=== PATIENT | female | born 1930 | race Caucasian/White ===

== ENCOUNTER 2017-11-21 15:38 | Emergency (ER) | payer MEDICARE, OTHER ==
[2017-11-21 15:38] VITALS: BMI 24.4
[2017-11-21 15:54] VITALS: TEMP 98
--- NOTE | 2017-11-21 16:44 | ED PDOC ---
Lower Extremity Pain/Injury Time Seen by Provider: 11/21/17 16:02 Chief Complaint (Nursing): Lower Extremity Problem/Injury Chief Complaint (Provider): LE edema History Per: Patient, Family History/Exam Limitations: no limitations Onset/Duration Of Symptoms: Days Current Symptoms Are (Timing): Better Severity: Mild Pain Scale Rating Of: 4 Additional Complaint(s): 87 y/o female with an extensive PMHx presents with a 2 day history of B/L lower extremity edema. Daughter at bedside reports sudden onset without triggering event. Noticed edema just below the knees after removing compression stockings. Since noticing, pt reports edema has subsided after elevating her legs for several hours. No LE pain/erythema. Reports taking her medications today. Also reports mild headache, that is band like, without any photophobia or numbness/ tingling/weakness. No change in exercise tolerance. Denies changes in vision, CP /SOB/palpitations, N/V/D/C, urinary symptoms. PMD: Dr. Rg Past Medical History Vital Signs: Last Vital Signs Temp 98.0 F 11/21/17 15:51 Pulse 82 11/21/17 16:33 Resp 18 11/21/17 16:33 BP 231/112 H 11/21/17 16:33 Pulse Ox 99 11/21/17 16:33 - Medical History PMH: Arthritis, Asthma, COPD, Dementia, Diabetes, HTN, Seizures, TIA Denies: HIV, Chronic Kidney Disease - Family History Family History: States: Unknown Family Hx - Immunization History Hx Influenza Vaccination: Yes Hx Pneumococcal Vaccination: Yes (5 years ago) - Home Medications Home Medications: Ambulatory Orders Medication Instructions Recorded Carvedilol [Coreg] 6.25 mg PO BID 08/23/15 Clopidogrel [Plavix] 75 mg PO DAILY 08/23/15 [id number] Ethyl Esters [Lovaza] 2 gm PO DAILY 08/23/15 Acetaminophen/Butalbital/Caf 1 tab PO Q4 PRN #0 tab 08/26/15 [Fioricet] Atorvastatin [Lipitor] 20 mg PO DAILY #0 tab 08/26/15 Enalapril Maleate [Vasotec] 10 mg PO DAILY #0 tab 08/26/15 Insulin Detemir [Levemir] 10 units SC HS #0 vial 08/26/15 MetFORMIN [glucoPHAGE] 1,000 mg PO BIDWM #0 tab 08/26/15 Aspirin [Ecotrin] 81 mg PO DAILY 09/01/15 Losartan [Cozaar] 100 mg PO DAILY #0 tab 09/01/15 Thiamine [Vitamin B1 Tab] 100 mg PO DAILY #0 tab 09/01/15 levETIRAcetam [Keppra] 500 mg PO BID #0 tab 09/01/15 Xyqhg-1-[id number] Ethyl Esters 1 GM 2 gm PO DAILY #0 sgl 09/11/15 [Lovaza] levETIRAcetam [Keppra] 250 mg PO Q12 #0 tab 09/11/15 - Allergies Allergies/Adverse Reactions: Allergies Allergy/AdvReac Type Severity Reaction Status Date / Time No Known Allergies Allergy Verified 09/01/15 16:15 Wells Criteria for PE - Wells Criteria for Pulmonary Embolism Clinical Signs and Symptoms of DVT: No Total Score: 0 Review of Systems ROS Statement: Except As Marked, All Systems Reviewed And Found Negative Physical Exam - Physical Exam Appears: Positive for: Non-toxic, No Acute Distress Head Exam: Positive for: ATRAUMATIC, NORMOCEPHALIC Skin: Positive for: Normal Color, Warm, Dry. Negative for: Diaphoresis, Pallor Eye Exam: Positive for: EOMI, PERRL. Negative for: Conjunctival injection, Scleral icterus Cardiovascular/Chest: Positive for: Regular Rate, Rhythm. Negative for: Edema, JVD, Bradycardia, Tachycardia Respiratory: Positive for: Normal Breath Sounds. Negative for: Crackles, Rales , Rhonchi, Wheezing, Respiratory Distress, Plerual Rub Pulses-Carotid (L): 2+ Pulses-Carotid (R): 2+ Pulses-Dorsalis Pedis (L): 2+ Pulses-Dorsalis Pedis (R): 2+ Gastrointestinal/Abdominal: Positive for: Normal Exam Back: Negative for: L CVA Tenderness, R CVA Tenderness Extremity: Positive for: Normal ROM, Capillary Refill (<2s). Negative for: Tenderness, Pedal Edema, Calf Tenderness, Swelling Neurologic/Psych: Positive for: Alert, junior linux systems administrator II-XII, Oriented - Laboratory Results Result Diagrams: 11/21/17 16:57 11/21/17 16:57 - ECG O2 Sat by Pulse Oximetry: 99 - Progress ED Course And Treament: elevated BP EKG- no acute changes CBC CMP pro-BNP: wnl CXR Clonidine 0.1mg re-evaluated BP 141/71 headache resolved Disposition - Clinical Impression Clinical Impression: HTN (hypertension) - Patient ED Disposition Is Patient to be Admitted: No Discussed With Dr.: Mario Rg Doctor Will See Patient In The: Office - Disposition Disposition: Routine/Home Disposition Time: 18:43 Condition: IMPROVED Additional Instructions: follow up with your primary doctor within one week return to the ED with any worsening or concerning symptoms. Instructions: Chronic Hypertension (ED) Forms: [employer] (Portuguese)
[2017-11-21 17:22] LABS: ALB/GLOB RATIO 1.2 (1.0-2.1); CALCIUM 8.8 mg/dL (8.4-10.2)
[2017-11-21 17:23] LABS: BASO # 0.1 K/uL (0.0-0.2); EOS # 0.2 K/uL (0.0-0.7); EOS % 2.6 % (0.0-4.0); LYMPH # 1.8 K/uL (1.0-4.3); LYMPH % 28.5 % (20.0-40.0); MEAN CELL VOLUME 92.3 fl (81.0-99.0); MEAN CORPUSCULAR HEMOGLOBIN 29.9 pg (27.0-31.0); MEAN CORPUSCULAR HGB CONC 32.4 g/dL (33.0-37.0); MEAN PLATELET VOLUME 7.8 fl (7.2-11.7); MONO # 0.5 K/uL (0.0-0.8); NEUT # 3.7 K/uL (1.8-7.0); NEUT % 59.9 % (50.0-75.0); RBC 3.67 Mil/uL (3.80-5.20); RED CELL DISTRIBUTION WIDTH 14.8 % (11.5-14.5); WHITE BLOOD COUNT 6.2 K/uL (4.8-10.8)
[2017-11-21 18:44] VITALS: O2SAT 99
[2017-11-21 18:49] VITALS: BP 141/71; PULSE 76; RESP 16
--- NOTE | 2017-11-22 13:56 | RAD ---
HISTORY: hx of b/l le edema COMPARISON: 08/28/2015 TECHNIQUE: Chest PA and lateral FINDINGS: LUNGS: Technically limited. No infiltrate. PLEURA: No significant pleural effusion identified. No pneumothorax apparent. CARDIOVASCULAR: Normal. OSSEOUS STRUCTURES: No significant abnormalities. VISUALIZED UPPER ABDOMEN: Normal. OTHER FINDINGS: None. IMPRESSION: No active disease.
--- NOTE | 2017-11-22 16:35 | CARD ---
APPROVED REPORT EKG Measurement Heart [id number] [place] [id number] <Conclusion> Sinus rhythm with 1st degree AV block Cannot rule out Inferior infarct, age undetermined Possible Anterior infarct, age undetermined Abnormal ECG
== END 2017-11-21 18:55 | disposition home or self-care (01) ==
LOC: H.ER 15:38
DX: I10 Essential (primary) hypertension (principal); E11.9 Type 2 diabetes mellitus without complications; Z79.4 Long term (current) use of insulin; J44.9 Chronic obstructive pulmonary disease, unspecified; F03.90 Unspecified dementia, unspecified severity, without behavioral disturbance, psychotic disturbance, mood disturbance, and anxiety; Z86.73 Personal history of transient ischemic attack (TIA), and cerebral infarction without residual deficits

== ENCOUNTER 2018-10-22 16:17 | Inpatient (IN) | payer OTHER ==
[2018-10-22 16:17] VITALS: BMI 24.4
[2018-10-22] MEDS ORDERED: Labetalol 5mg/ml (4ml) IVP STA (18:10)
[2018-10-22] MEDS ORDERED: Labetalol 5mg/ml (4ml) ONE (18:19)
--- NOTE | 2018-10-22 18:28 | ED PDOC ---
Lower Extremity Pain/Injury Time Seen by Provider: 10/22/18 17:59 Chief Complaint (Nursing): Lower Extremity Problem/Injury Chief Complaint (Provider): LE redness History/Exam Limitations: no limitations Onset/Duration Of Symptoms: Days Additional Complaint(s): 88 y/o F with HTN, seizures, TIA in the past in the setting of HTN who presents with LE edema and redness. Pt states that she began having LE itching about 2 w eeks ago due to dryness and was then noted to have B/L LE redness yesterday and swelling noted today. Denies fever, chills, night sweats. She saw her PMD, Dr. Rg this morning who referred her to the ER for admission for cellulitis. Pt currently with elevated BP and mild WRIGHT but denies visual changes, dizziness, chest pain, SOB, palpitations, limb weakness. Past Medical History Reviewed: Historical Data, Nursing Documentation, Vital Signs Vital Signs: Last Vital Signs Temp 98 F 10/22/18 17:26 Pulse 79 10/22/18 17:26 Resp 16 10/22/18 17:26 BP 213/77 H 10/22/18 17:33 Pulse Ox 99 10/22/18 17:26 - Medical History PMH: Arthritis, Asthma, COPD, Dementia, Diabetes, HTN, Seizures, TIA Denies: HIV, Chronic Kidney Disease - Family History Family History: States: Unknown Family Hx - Immunization History Hx Influenza Vaccination: Yes Hx Pneumococcal Vaccination: Yes (5 years ago) - Home Medications Home Medications: Ambulatory Orders Medication Instructions Recorded Clopidogrel [Plavix] 75 mg PO DAILY 08/23/15 Linagliptin [Tradjenta] 5 mg PO DAILY 03/13/18 traZODone [Desyrel] 25 mg PO HS 03/13/18 Aspirin [Ecotrin] 81 mg PO DAILY 10/22/18 Atorvastatin [Lipitor] 10 mg PO DAILY 10/22/18 Bimatoprost [Lumigan] 1 drop EACHEYE HS 10/22/18 Calcium Carbonate [Oscal] 500 mg PO BID 10/22/18 Cyanocobalamin [Vitamin B12] 250 mcg PO DAILY 10/22/18 Empagliflozin [Jardiance] 10 mg PO DAILY 10/22/18 Ergocalciferol (Vitamin D2) 50,000 unit PO SUN 10/22/18 [Vitamin D2] Glimepiride [amaRYL] 2 mg PO DAILY 10/22/18 Lactobacillus Acidophilus 1 tab PO DAILY 10/22/18 [Acidophilus Probiotic] Magnesium Oxide [Magox 400] 400 mg PO DAILY 10/22/18 Mometasone/Formoterol [Dulera 100 1 puff IH Q12 10/22/18 Mcg/5 Mcg Inhaler] amLODIPine [Norvasc] 10 mg PO DAILY 10/22/18 hydrALAZINE [Apresoline] 50 mg PO Q12 10/22/18 Carvedilol [Coreg] 25 mg PO Q12 #60 tab 10/23/18 Losartan [Cozaar] 100 mg PO DAILY #30 tab 10/23/18 - Allergies Allergies/Adverse Reactions: Allergies Allergy/AdvReac Type Severity Reaction Status Date / Time No Known Allergies Allergy Verified 10/22/18 17:30 Physical Exam - Reviewed Nursing Documentation Reviewed: Yes Vital Signs Reviewed: Yes - Physical Exam Appears: Positive for: Non-toxic Head Exam: Positive for: ATRAUMATIC Skin: Positive for: Rash (macular, erythematous rash on B/L LE with areas of excoriation) Eye Exam: Positive for: EOMI, PERRL Cardiovascular/Chest: Positive for: Regular Rate, Rhythm Respiratory: Positive for: Normal Breath Sounds Gastrointestinal/Abdominal: Positive for: Normal Exam Extremity: Positive for: Pedal Edema (Left > Right, 2+), Other Neurologic/Psych: Positive for: Alert, Oriented. Negative for: Motor/Sensory Deficits (supervisory it specialist strenght equal in B/L upper extremities, able to passively and actively flex at the hip, knee and foot B/L ) - Laboratory Results Result Diagrams: 10/23/18 08:57 10/23/18 08:57 - ECG O2 Sat by Pulse Oximetry: 99 Medical Decision Making Medical Decision Making: CBC, CMP, troponin Blood cultures Vanco 1G IV x 1 LE venous Duplex : no evidence of DVT Labetalol 20mg IV x 1 EKG: sinus w/ 1st degree AV block, HR 84, no ischemic change. telemetry Admit to Dr. Rg for HTN and cellulitis. Per Dr. Rg, defer head CT for now given lack of neurological deficits. Disposition - Clinical Impression Clinical Impression: Cellulitis, Hypertension - Patient ED Disposition Is Patient to be Admitted: Yes Doctor Will See Patient In The: Hospital Counseled Patient/Family Regarding: Studies Performed - Disposition Disposition: Transfer of Care Disposition Time: 18:32 Condition: STABLE
[2018-10-22] MEDS ORDERED: Vancomycin 1 g Inj ONE (18:36)
[2018-10-22 18:42] LABS: BASO # 0.1 K/uL (0.0-0.2); EOS # 0.5 K/uL (0.0-0.7); EOS % 7.1 % (0.0-4.0); HEMOGLOBIN 12.3 g/dL (12.0-16.0); LYMPH # 1.9 K/uL (1.0-4.3); LYMPH % 26.9 % (20.0-40.0); MEAN CELL VOLUME 89.4 fl (81.0-99.0); MEAN CORPUSCULAR HEMOGLOBIN 29.3 pg (27.0-31.0); MEAN CORPUSCULAR HGB CONC 32.8 g/dL (33.0-37.0); MEAN PLATELET VOLUME 7.3 fl (7.2-11.7); MONO # 0.6 K/uL (0.0-0.8); NRBC % 0.2 % (0.0-0.0); RBC 4.18 Mil/uL (3.80-5.20); RED CELL DISTRIBUTION WIDTH 13.9 % (11.5-14.5); WHITE BLOOD COUNT 7.1 K/uL (4.8-10.8)
[2018-10-22 18:47] LABS: ALB/GLOB RATIO 1.1 (1.0-2.1); ALBUMIN 4.2 g/dL (3.5-5.0); ALT/SGPT 36 U/L (9-52); AST/SGOT 48 U/L (14-36); BLOOD UREA NITROGEN 20 mg/dl (7-17); CALCIUM 9.2 mg/dL (8.4-10.2); GFR NON-AFRICAN AMERICAN 42
[2018-10-22 18:48] LABS: VENOUS BLOOD GAS BASE EXCESS 0.5 mmol/L (0.0-2.0); VENOUS BLOOD GAS PCO2 37 mmHg (40-60); VENOUS BLOOD GAS PO2 84 mm/Hg (30-55); VENOUS BLOOD PH 7.43 (7.32-7.43)
--- NOTE | 2018-10-22 19:40 | US ---
Date of service: 10/22/2018 PROCEDURE: Bilateral lower extremity venous duplex Doppler. HISTORY: LLE swelling COMPARISON: None available. TECHNIQUE: Bilateral common femoral, superficial femoral, popliteal and posterior tibial veins were evaluated. Flow was assessed with color Doppler, compressibility, assessment of phasic flow and augmentation response. FINDINGS: COMMON FEMORAL VEIN: Right CFV: Unremarkable. Left CFV: Unremarkable. SUPERFICIAL FEMORAL VEIN: Right SFV: Unremarkable. Left SFV: Unremarkable. POPLITEAL VEIN: Right Popliteal: Unremarkable. Left Popliteal: Unremarkable. POSTERIOR TIBIAL VEIN: Right PTV: Unremarkable. Left PTV: Unremarkable. OTHER FINDINGS: None. IMPRESSION: No evidence of deep venous thrombosis.
--- NOTE | 2018-10-23 06:41 | CARD ---
APPROVED REPORT Date of service: 10/22/2018 EKG Measurement Heart [id number] <Conclusion> Sinus rhythm with 1st degree AV block Otherwise normal ECG
--- NOTE | 2018-10-23 06:53 | CP.PCM.HP ---
History of Present Illness - History of Present Illness History of Present Illness: This is an 88 y/o F with hx of HTn and DM 2 and mild PAD admitted for increasing redness of lower extremities bbbbilateral, left worst than right for the past 48 hrs. Cliams that due to dry pruritic skin, she has been scratching her legs for the past two weeks and suddenly yesterday noted to have erythematous rash on both lower extremities. Has a hx of HTN at times accelerated, TID, acute dementia and DM 2. She has been compliant with her medications and follow up. At the ER she was noted to have elevated BP but denies having any chest pain or SOB. Present on Admission - Present on Admission Any Indicators Present on Admission: No History of DVT/PE: No History of Uncontrolled Diabetes: Yes Urinary Catheter: No Decubitus Ulcer Present: No Review of Systems - Integumentary Additional comments: dry skin Past Patient History - Infectious Disease Hx of Infectious Diseases: None - Past Medical History & Family History Past Medical History?: Yes - Past Social History Smoking Status: Never Smoked - CARDIAC Hx Cardiac Disorders: Yes Hx Hypertension: Yes - PULMONARY Hx Respiratory Disorders: Yes Hx Asthma: Yes Hx Chronic Obstructive Pulmonary Disease (COPD): Yes - NEUROLOGICAL Hx Neurological Disorder: Yes Hx Dementia: Yes Hx Seizures: Yes Hx Transient Ischemic Attacks (TIA): Yes - HEENT Hx HEENT Problems: No - RENAL Hx Chronic Kidney Disease: No - ENDOCRINE/METABOLIC Hx Endocrine Disorders: Yes Hx Diabetes Mellitus Type 2: Yes - HEMATOLOGICAL/ONCOLOGICAL Hx Blood Disorders: No Hx AIDS: No Hx Human Immunodeficiency Virus (HIV): No - INTEGUMENTARY Hx Dermatological Problems: No - MUSCULOSKELETAL/RHEUMATOLOGICAL Hx Musculoskeletal Disorders: Yes Hx Arthritis: Yes Hx Falls: No - GASTROINTESTINAL Hx Gastrointestinal Disorders: No - GENITOURINARY/GYNECOLOGICAL Hx Genitourinary Disorders: No - PSYCHIATRIC Hx Psychophysiologic Disorder: No Hx Substance Use: No - SURGICAL HISTORY Hx Surgeries: Yes Hx Cataract Extraction: Yes (right) - ANESTHESIA Hx Anesthesia: Yes Hx Anesthesia Reactions: No Hx Malignant Hyperthermia: No Has any member of the family had a problem w/ anesthesia?: No Meds Allergies/Adverse Reactions: Allergies Allergy/AdvReac Type Severity Reaction Status Date / Time No Known Allergies Allergy Verified 10/22/18 17:30 Physical Exam - Head Exam Head Exam: NORMAL INSPECTION - Eye Exam Eye Exam: Normal appearance - ENT Exam ENT Exam: Mucous Membranes Moist - Respiratory Exam Respiratory Exam: Clear to Auscultation Bilateral - Cardiovascular Exam Cardiovascular Exam: REGULAR RHYTHM - GI/Abdominal Exam GI & Abdominal Exam: Normal Bowel Sounds - Extremities Exam Additional comments: erythematous rashes on both legs with evidence of scratching. warm to touch and slight ly tender. - Neurological Exam Neurological exam: CN II-XII Intact - Psychiatric Exam Psychiatric exam: Normal Mood - Skin Skin Exam: Dry Results - Vital Signs Recent Vital Signs: Last Vital Signs Temp 98.0 F 10/23/18 05:35 Pulse 66 10/23/18 05:35 Resp 16 10/23/18 05:35 BP 120/58 L 10/23/18 05:35 Pulse Ox 98 10/23/18 05:35 - Labs Result Diagrams: 10/22/18 18:32 10/22/18 18:32 Labs: Laboratory Results - last 24 hr 10/22/18 10/22/18 10/22/18 18:00 18:32 18:32 WBC 7.1 RBC 4.18 Hgb 12.3 Hct 37.4 MCV 89.4 MCH 29.3 MCHC 32.8 L RDW 13.9 Plt Count 221 MPV 7.3 Neut % (Auto) 57.0 Lymph % (Auto) 26.9 Cuming % (Auto) 8.0 Eos % (Auto) 7.1 H Baso % (Auto) 1.0 Neut # (Auto) 4.0 Lymph # (Auto) 1.9 Cuming # (Auto) 0.6 Eos # (Auto) 0.5 Baso # (Auto) 0.1 pO2 VBG pH VBG pCO2 VBG HCO3 VBG Total CO2 VBG O2 Sat (Calc) VBG Base Excess VBG Potassium Glucose Lactate FiO2 Sodium 140 Potassium 4.4 Chloride 105 Carbon Dioxide 25 Anion Gap 14 BUN 20 H Creatinine 1.2 Est GFR ( Amer) 51 Est GFR (Non-Af Amer) 42 POC Glucose (mg/dL) 126 H Random Glucose 154 H Calcium 9.2 Total Bilirubin 0.3 AST 48 H D ALT 36 Alkaline Phosphatase 52 Troponin I < 0.0120 Total Protein 8.0 Albumin 4.2 Globulin 3.8 Albumin/Globulin Ratio 1.1 Venous Blood Potassium 10/22/18 10/22/18 10/23/18 18:44 22:47 05:36 WBC RBC Hgb Hct MCV MCH MCHC RDW Plt Count MPV Neut % (Auto) Lymph % (Auto) Cuming % (Auto) Eos % (Auto) Baso % (Auto) Neut # (Auto) Lymph # (Auto) Cuming # (Auto) Eos # (Auto) Baso # (Auto) pO2 84 H VBG pH 7.43 VBG pCO2 37 L VBG HCO3 25.3 VBG Total CO2 25.7 VBG O2 Sat (Calc) 98.5 H VBG Base Excess 0.5 VBG Potassium 4.2 Glucose 154 H Lactate 1.6 FiO2 21.0 Sodium 137.0 Potassium Chloride 105.0 Carbon Dioxide Anion Gap BUN Creatinine Est GFR ( Amer) Est GFR (Non-Af Amer) POC Glucose (mg/dL) 158 H 116 H Random Glucose Calcium Total Bilirubin AST ALT Alkaline Phosphatase Troponin I Total Protein Albumin Globulin Albumin/Globulin Ratio Venous Blood Potassium 4.2 Assessment & Plan (1) Cellulitis Status: Acute (2) Hypertension Status: Acute (3) Peripheral artery disease Status: Acute (4) Diabetes mellitus type 2 in obese Status: Acute - Assessment and Plan (Free Text) Plan: start BP meds add hydralazine 25 tid start vancomycin q 24 recheck cbc sed rate cmp in am. telemetry dur to episodes of accellerated BP.
[2018-10-23] MEDS: Fluticasone-Salmeterol 250-50mcg Diskus IH SCH ×2 (08:27→22:00)
[2018-10-23] MEDS: CYANOCOBALAMIN (VITAMIN B-12) 250 MCG TABLET PO SCH (08:29)
[2018-10-23] MEDS: Magnesium Oxide 400 mg Tab UD PO SCH (08:31)
[2018-10-23] MEDS: GlipiZIDE 5 mg SR Tab PO SCH (08:31)
[2018-10-23] MEDS: Lactobacillus Acidophilus 500 MU Cap PO SCH (08:35)
[2018-10-23 10:03] LABS: HEMOGLOBIN 12.2 g/dL (12.0-16.0); MEAN CELL VOLUME 89.8 fl (81.0-99.0); MEAN CORPUSCULAR HEMOGLOBIN 29.3 pg (27.0-31.0); MEAN CORPUSCULAR HGB CONC 32.7 g/dL (33.0-37.0); RBC 4.15 Mil/uL (3.80-5.20); RED CELL DISTRIBUTION WIDTH 14.3 % (11.5-14.5); WHITE BLOOD COUNT 6.8 K/uL (4.8-10.8)
[2018-10-23 10:39] LABS: ALB/GLOB RATIO 1.1 (1.0-2.1); ALBUMIN 3.9 g/dL (3.5-5.0); ALT/SGPT 28 U/L (9-52); AST/SGOT 39 U/L (14-36); BLOOD UREA NITROGEN 15 mg/dl (7-17); CALCIUM 8.5 mg/dL (8.4-10.2); GFR NON-AFRICAN AMERICAN 52
--- NOTE | 2018-10-23 12:06 | CP.PCM.PN ---
Subjective - Date & Time of Evaluation Date of Evaluation: 10/23/18 Time of Evaluation: 11:15 - Subjective Subjective: Pt seen/evaluated with Dr. Rg this am; no acute events overnight. Pt c/o itchy/dry skin on her arm, but not in acute distress. Denies chest pain, shortness of breath. Still with elevated BP readings this am. Objective - Vital Signs/Intake and Output Vital Signs (last 24 hours): Temp Pulse Resp BP Pulse Ox 97.5 F L 74 18 120/63 97 10/23/18 11:50 10/23/18 11:50 10/23/18 11:50 10/23/18 11:50 10/23/18 11:50 - Medications Medications: Current Medications Amlodipine Besylate (Norvasc) 10 mg PO DAILY [facility] Aspirin (Ecotrin) 81 mg PO DAILY [facility] Last Admin: 10/23/18 08:31 Dose: 81 mg Atorvastatin Calcium (Lipitor) 10 mg PO DAILY [facility] Last Admin: 10/23/18 08:31 Dose: 10 mg Calcium Carbonate (Oscal) 500 mg PO BID [facility] Last Admin: 10/23/18 08:32 Dose: 500 mg Carvedilol (Coreg) 25 mg PO Q12 [facility] Last Admin: 10/23/18 08:28 Dose: 25 mg Clopidogrel Bisulfate (Plavix) 75 mg PO DAILY [facility] Last Admin: 10/23/18 08:29 Dose: 75 mg Cyanocobalamin (Vitamin B-12) 250 mcg PO DAILY [facility] Last Admin: 10/23/18 08:29 Dose: 250 mcg Ergocalciferol (Drisdol 50,000 Intl Units Cap) 1 cap PO SUN [facility] Glipizide (Glucotrol Xl) 5 mg PO BRK [facility] Last Admin: 10/23/18 08:31 Dose: 5 mg Home Med (Empagliflozin [Jardiance]) 10 mg PO DAILY [facility] Hydralazine HCl (Apresoline) 50 mg PO Q12 [facility] Last Admin: 10/23/18 08:28 Dose: 50 mg Hydralazine HCl (Apresoline) 25 mg PO QID PRN PRN Reason: Systolic BP >150 Vancomycin HCl 1 gm/ Sodium (Chloride) 250 mls @ 166.667 mls/hr IVPB DAILY [facility]; Protocol Last Admin: 10/23/18 08:33 Dose: 166.667 mls/hr Lactic Acid (Lac-Hydrin 12% Cream (140 G)) 1 ea TOP BID [facility] Lactobacillus Acidophilus (Bacid Acidophilus) 1 cap PO DAILY [facility] Last Admin: 10/23/18 08:35 Dose: 1 cap Latanoprost (Xalatan Opht) 1 drop OU HS [facility] Losartan Potassium (Cozaar) 100 mg PO DAILY [facility] Last Admin: 10/23/18 08:31 Dose: 100 mg Magnesium Oxide (Mag-Ox) 400 mg PO DAILY [facility] Last Admin: 10/23/18 08:31 Dose: 400 mg Fluticasone/Salmeterol (Advair Diskus 250/50) 1 puff IH Q12 [facility] Last Admin: 10/23/18 08:27 Dose: 1 puff Sitagliptin Phosphate (Januvia) 25 mg PO DAILY [facility] Last Admin: 10/23/18 08:29 Dose: 25 mg Trazodone HCl (Desyrel) 25 mg PO HS [place] - Labs Labs: 10/23/18 08:57 10/23/18 08:57 - Constitutional Appears: No Acute Distress - Head Exam Head Exam: NORMAL INSPECTION - Eye Exam Eye Exam: Normal appearance - ENT Exam ENT Exam: Mucous Membranes Moist - Respiratory Exam Respiratory Exam: Clear to Ausculation Bilateral, NORMAL BREATHING PATTERN - Cardiovascular Exam Cardiovascular Exam: REGULAR RHYTHM - GI/Abdominal Exam GI & Abdominal Exam: Soft - Extremities Exam Additional comments: erythema improving - Neurological Exam Neurological Exam: Alert, Awake - Psychiatric Exam Psychiatric exam: Normal Mood - Skin Skin Exam: Dry, Warm Assessment and Plan (1) Cellulitis Status: Acute (2) Hypertension Status: Acute (3) Peripheral artery disease Status: Acute (4) Diabetes mellitus type 2 in obese Status: Acute - Assessment and Plan (Free Text) Plan: -Continue with BP management -Continue vancomycin -Lachydrin cream for dry skin -Continue medications for diabetes, hyperlipidemia -Continue rest of medical management as ordered
[2018-10-23] MEDS: Ammonium Lactate 12% Cream (140 g) TOP SCH ×2 (12:18→17:19)
[2018-10-23] MEDS ORDERED: Latanoprost 0.005% Opht SOUTION OU SCH (22:00)
[2018-10-24 08:18] VITALS: RESP 20
[2018-10-24] MEDS: Magnesium Oxide 400 mg Tab UD PO SCH (08:33)
[2018-10-24] MEDS: Ammonium Lactate 12% Cream (140 g) TOP SCH (08:33)
[2018-10-24] MEDS: GlipiZIDE 5 mg SR Tab PO SCH (08:34)
[2018-10-24] MEDS: CYANOCOBALAMIN (VITAMIN B-12) 250 MCG TABLET PO SCH (08:34)
[2018-10-24] MEDS: Lactobacillus Acidophilus 500 MU Cap PO SCH (08:38)
[2018-10-24] MEDS: Fluticasone-Salmeterol 250-50mcg Diskus IH SCH (08:39)
[2018-10-24 12:07] VITALS: PULSE 96; TEMP 98.5; O2SAT 99
[2018-10-24 12:34] VITALS: BP 123/69
--- NOTE | 2018-10-24 13:48 | CP.PCM.DIS ---
Provider - Provider Date of Admission: 10/22/18 18:22 Attending physician: Mario Rg MD Primary care physician: Dr. Rg Time Spent in preparation of Discharge (in minutes): 20 Diagnosis - Discharge Diagnosis (1) Cellulitis Status: Acute (2) Hypertension Status: Chronic (3) Peripheral artery disease Status: Chronic (4) Diabetes mellitus type 2 in obese Status: Chronic Hospital Course - Lab Results Lab Results: Micro Results 10/22/18 18:40 Blood-Venous Blood Culture - Preliminary NO GROWTH AFTER 24 HOURS Most Recent Lab Values WBC 6.8 K/uL (4.8-10.8) 10/23/18 08:57 RBC 4.15 Mil/uL (3.80-5.20) 10/23/18 08:57 Hgb 12.2 g/dL (12.0-16.0) 10/23/18 08:57 Hct 37.2 % (34.0-47.0) 10/23/18 08:57 MCV 89.8 fl (81.0-99.0) 10/23/18 08:57 MCH 29.3 pg (27.0-31.0) 10/23/18 08:57 MCHC 32.7 g/dL (33.0-37.0) L 10/23/18 08:57 RDW 14.3 % (11.5-14.5) 10/23/18 08:57 Plt Count 217 K/uL (130-400) 10/23/18 08:57 MPV 7.3 fl (7.2-11.7) 10/22/18 18:32 Neut % (Auto) 57.0 % (50.0-75.0) 10/22/18 18:32 Lymph % (Auto) 26.9 % (20.0-40.0) 10/22/18 18:32 [place] % (Auto) 8.0 % (0.0-10.0) 10/22/18 18:32 Eos % (Auto) 7.1 % (0.0-4.0) H 10/22/18 18:32 Baso % (Auto) 1.0 % (0.0-2.0) 10/22/18 18:32 Neut # (Auto) 4.0 K/uL (1.8-7.0) 10/22/18 18:32 Lymph # (Auto) 1.9 K/uL (1.0-4.3) 10/22/18 18:32 [place] # (Auto) 0.6 K/uL (0.0-0.8) 18 18:32 Eos # (Auto) 0.5 K/uL (0.0-0.7) 10/22/18 18:32 Baso # (Auto) 0.1 K/uL (0.0-0.2) 10/22/18 18:32 pO2 84 mm/Hg (30-55) H 10/22/18 18:44 VBG pH 7.43 (7.32-7.43) 10/22/18 18:44 VBG pCO2 37 mmHg (40-60) L 10/22/18 18:44 VBG HCO3 25.3 mmol/L 10/22/18 18:44 VBG Total CO2 25.7 mmol/L (22-28) 10/22/18 18:44 VBG O2 Sat (Calc) 98.5 % (40-65) H 10/22/18 18:44 VBG Base Excess 0.5 mmol/L (0.0-2.0) 10/22/18 18:44 VBG Potassium 4.2 mmol/L (3.6-5.2) 10/22/18 18:44 Sodium 137.0 mmol/L (132-148) 10/22/18 18:44 Chloride 105.0 mmol/L (98-107) 10/22/18 18:44 Glucose 154 mg/dL (65-105) H 10/22/18 18:44 Lactate 1.6 mmol/L (0.7-2.1) 10/22/18 18:44 FiO2 21.0 % 10/22/18 18:44 Sodium 140 mmol/l (132-148) 10/23/18 08:57 Potassium 4.1 MMOL/L (3.6-5.0) 10/23/18 08:57 Chloride 107 mmol/L (98-107) 10/23/18 08:57 Carbon Dioxide 23 mmol/L (22-30) 10/23/18 08:57 Anion Gap 14 (10-20) 10/23/18 08:57 BUN 15 mg/dl (7-17) 10/23/18 08:57 Creatinine 1.0 mg/dl (0.7-1.2) 10/23/18 08:57 Est GFR ( Amer) > 60 10/23/18 08:57 Est GFR (Non-Af Amer) 52 10/23/18 08:57 POC Glucose (mg/dL) 143 mg/dL (65-110) H 10/24/18 11:27 Random Glucose 233 mg/dL (65-105) H 10/23/18 08:57 Calcium 8.5 mg/dL (8.4-10.2) 10/23/18 08:57 Total Bilirubin 0.4 mg/dl (0.2-1.3) 10/23/18 08:57 AST 39 U/L (14-36) H 10/23/18 08:57 ALT 28 U/L (9-52) 10/23/18 08:57 Alkaline Phosphatase 46 U/L (38-126) 10/23/18 08:57 Troponin I < 0.0120 ng/mL (0.00-0.120) 10/22/18 18:32 Total Protein 7.5 G/DL (6.3-8.2) 10/23/18 08:57 Albumin 3.9 g/dL (3.5-5.0) 10/23/18 08:57 Globulin 3.7 gm/dL (2.2-3.9) 10/23/18 08:57 Albumin/Globulin Ratio 1.1 (1.0-2.1) 10/23/18 08:57 Venous Blood Potassium 4.2 mmol/L (3.6-5.2) 10/22/18 18:44 - Hospital Course Hospital Course: 88 yo F with hypertension and DM 2 and mild PAD admitted for increasing redness of lower extremities bilateraly, L>R for 48 hrs prior to admission. Pt noted to PMD that she had had dry skin for two weeks and had been scratching at it. She was seen by PMD day of admission and was noted to have elevated BP; is known case of accelerated hypertension at times. Started on vancomycin with improvement of cellulitis. No leukocytotis. Remained afebrile during stay. BP was controlled with home medications, with additional dose of hydralazine PRN. Pt's BP returned to normal baseline with home meds. Pt seen/evaluated with Dr. Rg this morning. No acute events overnight; redness on lower extremities much improved. She denies having any chest pain or SOB. Stable for discharge today with prescription for outpatient Keflex, 500 mg Q12 x 5 days. Advised to follow up with PMD Dr. Rg in 1 week. Instructed to resume home BP management as before, no changes at this time, BP check at follow up. Discharge Exam - Head Exam Head Exam: ATRAUMATIC - Eye Exam Eye Exam: Normal appearance - Respiratory Exam Respiratory Exam: Clear to PA & Lateral, NORMAL BREATHING PATTERN, UNREMARKABLE - Cardiovascular Exam Cardiovascular Exam: REGULAR RHYTHM, +S1, +S2 - GI/Abdominal Exam GI & Abdominal Exam: Soft - Extremities Exam Additional comments: decreasing erythema - Neurological Exam Neurological exam: Alert - Psychiatric Exam Psychiatric exam: Normal Mood - Skin Skin Exam: Warm Discharge Plan - Discharge Medications Prescriptions: Carvedilol [Coreg] 25 mg PO Q12 #60 tab Cephalexin [cephalexin] 500 mg PO Q12 #10 cap Losartan [Cozaar] 100 mg PO DAILY #30 tab - Follow Up Plan Condition: STABLE Disposition: HOME/ ROUTINE Instructions: High Blood Pressure (DC), Cellulitis (Skin Infection), Adult (DC) Additional Instructions: Resume your medications for blood pressure as you were taking before admission. Take antibiotics for 5 days, antibiotic sent to your pharmacy. Take 1 pill every [address] Rg in the office in 1 week. Go to ED if you have chest pain or trouble breathing. Referrals: Mario Rg MD [Family Provider] -
[2018-10-28] MEDS ORDERED: Ergocalciferol 50,000 Intl Units Cap PO SCH (09:00)
== END 2018-10-24 14:29 | disposition home or self-care (01) | DRG 603 ==
LOC: H.ER 16:17 → H.ERHOLD 18:22 → H.TEL 22:57
PROVIDERS: ADMIT Family Medicine; ATTEND Family Medicine
DX: L03.116 Cellulitis of left lower limb (principal); L03.115 Cellulitis of right lower limb; I10 Essential (primary) hypertension; Z86.73 Personal history of transient ischemic attack (TIA), and cerebral infarction without residual deficits; M19.90 Unspecified osteoarthritis, unspecified site; J44.9 Chronic obstructive pulmonary disease, unspecified; F03.90 Unspecified dementia, unspecified severity, without behavioral disturbance, psychotic disturbance, mood disturbance, and anxiety; E11.51 Type 2 diabetes mellitus with diabetic peripheral angiopathy without gangrene; E66.9 Obesity, unspecified; E78.5 Hyperlipidemia, unspecified; Z79.02 Long term (current) use of antithrombotics/antiplatelets; Z79.82 Long term (current) use of aspirin; Z79.51 Long term (current) use of inhaled steroids; Z79.84 Long term (current) use of oral hypoglycemic drugs; Z68.26 Body mass index [BMI] 26.0-26.9, adult